=== PATIENT | male | born 1940 | race Caucasian/White ===

== ENCOUNTER 2016-10-03 16:39 | Emergency (ER) | payer MEDICARE, OTHER ==
[~2016-10-03 16:39] MED LIST: AMBIEN10 MG PO; ASPIRIN81 MG PO; CARDIZEM CD120 MG PO; CEFTIN500 MG PO; COLCRYS0.6 MG PO; CORDARONE200 MG PO; COREG 3.125M3.125 MG PO; DIGITEK125 MCG PO; DILTIAZEM 24HR360 MG PO; DOXEPIN HCL75 MG PO; FEOSOL325 MG PO; GLUCOPHAGE500 MG PO; GLUCOTROL XL10 MG PO; IPRATROPIUM0.2 MG/ML NEB; K-DUR20 MEQ PO; LACTINEX1 EACH PO; LANOXIN 0.120.125 MG PO; LASIX40 MG PO; LESCOL40 MG PO; LEVAQUIN750 MG PO; LEVEMIR FL100 UNIT/1 SC; LOPRESSOR25 MG PO; MUCINEX600 MG PO; PRAVACHOL40 MG PO; PREDNISONE 10MG10 MG PO; PRILOSEC20 MG PO; PRILOSEC40 MG PO; PROBENECID500 MG PO; PULMICORT0.5 MG/2 M NEB; SPIRIVA RESPIMAT4 G1 INH; SYNTHROID50 MCG PO; THEOPHYLLINE400 MG PO; TOUJEO SQ; VENTOLIN (2.5 MG/3 M INH; XOPENEX (00.63 MG/3 NEB; ZESTRIL10 MG PO; ZITHROMAX500 MG PO; ZYRTEC10 MG PO
[2016-10-03 17:26] LABS: BASOPHIL 0.2 % (0-2); EOSINOPHIL 0.3 % (0-7); HCT 36.7 % (42.0-52.0); HGB 11.1 g/dl (13.2-18.0); LYMPHOCYTE 13.7 % (15-48); MCH 24.8 pg (25.0-31.0); MCHC 30.2 g/dL (32.0-36.0); MCV 81.9 fL (78.0-100.0); MONOCYTE 4.4 % (0-12); MPV 8.9 fL (6.0-9.5); NEUTROPHIL 81.4 % (41-80); PLT 375 K/uL (150-400); RBC 4.48 M/uL (4.70-6.00); RDW 16.6 % (11.5-14.0); WBC 11.9 K/uL (4.0-10.5)
[2016-10-03 17:36] LABS: LACTIC ACID 2.3 mmol/L (0.5-2.2)
[2016-10-03 17:38] LABS: ALBUMIN 3.1 g/dL (3.4-4.8); BILIRUBIN - TOTAL 0.7 mg/dL (0.1-1.0); CREATININE 1.1 mg/dL (0.7-1.2); POTASSIUM 3.7 mmol/L (3.5-5.1); TOTAL PROTEIN 7.1 g/dL (6.4-8.3)
== END 2016-10-03 19:03 | disposition home or self-care (01) ==
LOC: FER 16:39
PROVIDERS: Internal Medicine
DX: J44.1 Chronic obstructive pulmonary disease with (acute) exacerbation (principal); I48.91 Unspecified atrial fibrillation; E10.9 Type 1 diabetes mellitus without complications; Z95.1 Presence of aortocoronary bypass graft
CPT/HCPCS: 36415; 71010; 80053; 83605; 85025; 87040; 93005; 94640

== ENCOUNTER 2016-10-07 03:00 | Emergency (ER) | payer MEDICARE, OTHER ==
[2016-10-07 03:46] LABS: BASOPHIL 0.1 % (0-2); EOSINOPHIL 0.1 % (0-7); HCT 38.6 % (42.0-52.0); HGB 11.7 g/dl (13.2-18.0); MCH 24.9 pg (25.0-31.0); MCHC 30.3 g/dL (32.0-36.0); MCV 82.1 fL (78.0-100.0); MONOCYTE 4.3 % (0-12); NEUTROPHIL 84.5 % (41-80); PLT 393 K/uL (150-400); RDW 16.8 % (11.5-14.0); WBC 15.1 K/uL (4.0-10.5)
[2016-10-07 03:55] LABS: INR 0.99 (0.9-1.2); PROTHROMBIN TIME 12.7 SECONDS (11.7-14.0); PTT 26.4 SECONDS (23.2-31.4)
[2016-10-07 04:04] LABS: CKMB 2.24 ng/mL (0.97-4.94)
[2016-10-07 04:05] LABS: ALBUMIN 3.2 g/dL (3.4-4.8); BILIRUBIN - TOTAL 0.6 mg/dL (0.1-1.0); CREATININE 1.1 mg/dL (0.7-1.2); POTASSIUM 4.1 mmol/L (3.5-5.1); TOTAL PROTEIN 7.2 g/dL (6.4-8.3)
[2016-10-07 04:07] LABS: TROPONIN T 0.102 ng/mL
== END 2016-10-07 06:02 | disposition other institution (70) ==
LOC: FER 03:00
PROVIDERS: Emergency Medicine
DX: I24.9 Acute ischemic heart disease, unspecified (principal); J44.9 Chronic obstructive pulmonary disease, unspecified; E11.9 Type 2 diabetes mellitus without complications; I48.91 Unspecified atrial fibrillation; I25.2 Old myocardial infarction; Z87.891 Personal history of nicotine dependence; Z79.51 Long term (current) use of inhaled steroids; Z79.84 Long term (current) use of oral hypoglycemic drugs; Z79.899 Other long term (current) drug therapy; Z95.0 Presence of cardiac pacemaker; W01.0XXA Fall on same level from slipping, tripping and stumbling without subsequent striking against object, initial encounter; Y92.091 Bathroom in other non-institutional residence as the place of occurrence of the external cause
CPT/HCPCS: 36415; 36600; 71010; 72100; 80053; 82550; 82553; 82803; 83880; 84484; 85025; 85610; 85730; 93005; 94640; 94760; 96372; J1160; J2270; J2405

== ENCOUNTER 2016-10-11 08:39 | Inpatient (IN) | payer MEDICARE, OTHER ==
[2016-10-11 09:16] LABS: BASOPHIL 0.1 % (0-2); EOSINOPHIL 0.1 % (0-7); HCT 35.5 % (42.0-52.0); HGB 11.1 g/dl (13.2-18.0); LYMPHOCYTE 6.1 % (15-48); MCH 24.8 pg (25.0-31.0); MCHC 31.3 g/dL (32.0-36.0); MCV 79.4 fL (78.0-100.0); MONOCYTE 5.8 % (0-12); MPV 8.9 fL (6.0-9.5); NEUTROPHIL 87.9 % (41-80); PLT 375 K/uL (150-400); RBC 4.47 M/uL (4.70-6.00); RDW 16.7 % (11.5-14.0)
[2016-10-11 09:17] LABS: WBC 20.9 K/uL (4.0-10.5)
[2016-10-11 09:29] LABS: CREATININE 1.4 mg/dL (0.7-1.2); POTASSIUM 4.1 mmol/L (3.5-5.1)
[2016-10-11 09:34] LABS: TROPONIN T 0.149 ng/mL
[2016-10-11 09:50] LABS: LACTIC ACID 2.2 mmol/L (0.5-2.2)
[2016-10-13 04:13] LABS: HCT 28.9 % (42.0-52.0); HGB 8.9 g/dl (13.2-18.0); MCH 24.5 pg (25.0-31.0); MCHC 30.8 g/dL (32.0-36.0); MCV 79.6 fL (78.0-100.0); MPV 8.6 fL (6.0-9.5); RBC 3.63 M/uL (4.70-6.00); RDW 16.3 % (11.5-14.0); WBC 9.1 K/uL (4.0-10.5)
[2016-10-13 04:34] LABS: CREATININE 1.6 mg/dL (0.7-1.2); POTASSIUM 3.7 mmol/L (3.5-5.1)
[2016-10-14 04:54] LABS: HCT 32.1 % (42.0-52.0); HGB 9.9 g/dl (13.2-18.0); MCH 24.3 pg (25.0-31.0); MCHC 30.8 g/dL (32.0-36.0); MCV 78.9 fL (78.0-100.0); MPV 8.7 fL (6.0-9.5); RBC 4.07 M/uL (4.70-6.00); RDW 16.3 % (11.5-14.0); WBC 9.2 K/uL (4.0-10.5)
[2016-10-14 05:05] LABS: CREATININE 1.5 mg/dL (0.7-1.2); POTASSIUM 3.1 mmol/L (3.5-5.1)
== END 2016-10-14 17:46 | DRG 871 ==
LOC: FER 08:39 → FTCU 11:33 → FMS 10-13 16:00
PROVIDERS: Internal Medicine; Internal Medicine Cardiovascular Disease; ADMIT Internal Medicine
DX: A41.9 Sepsis, unspecified organism (principal); I50.33 Acute on chronic diastolic (congestive) heart failure; J96.20 Acute and chronic respiratory failure, unspecified whether with hypoxia or hypercapnia; J44.0 Chronic obstructive pulmonary disease with (acute) lower respiratory infection; E11.9 Type 2 diabetes mellitus without complications; D64.9 Anemia, unspecified; J44.1 Chronic obstructive pulmonary disease with (acute) exacerbation; I48.2 Chronic atrial fibrillation; I10 Essential (primary) hypertension; E03.9 Hypothyroidism, unspecified; I25.10 Atherosclerotic heart disease of native coronary artery without angina pectoris; E78.5 Hyperlipidemia, unspecified; J20.9 Acute bronchitis, unspecified; Z86.14 Personal history of Methicillin resistant Staphylococcus aureus infection; Z95.1 Presence of aortocoronary bypass graft; Z95.0 Presence of cardiac pacemaker; Z79.82 Long term (current) use of aspirin; I25.2 Old myocardial infarction; Z86.711 Personal history of pulmonary embolism; Z72.0 Tobacco use
CPT/HCPCS: 36415; 36600; 71010; 71250; 80048; 82803; 82962; 83605; 83880; 84484; 85025; 87040; 87804; 87899; 93005; 94010; 94640; 94667; 94668; 97110; 97116; 97162; 97166; 97530; 97530-GP; 97535; J1170; J1940; J2405; J2543; J2930

== ENCOUNTER 2016-10-14 17:21 | Inpatient (IN) | payer MEDICARE, OTHER ==
[2016-10-18 12:00] LABS: HGB 9.9 g/dl (13.2-18.0); MCH 24.4 pg (25.0-31.0); MCHC 30.9 g/dL (32.0-36.0); MPV 8.5 fL (6.0-9.5); RBC 4.05 M/uL (4.70-6.00); RDW 16.3 % (11.5-14.0); RETICULOCYTE COUNT 2.3 % (1.0-2.0); WBC 16.6 K/uL (4.0-10.5)
[2016-10-18 12:14] LABS: CREATININE 1.2 mg/dL (0.7-1.2); POTASSIUM 4.3 mmol/L (3.5-5.1)
[2016-10-18 12:18] LABS: IRON 35 ug/dL (44-196); IRON % SATURATION 16 %SAT (20-50); TIBC (TOTAL IRON + UIBC) 218 U/L (228-428); UIBC 183 ug/dL (112-346)
[2016-10-18 12:40] LABS: FOLIC ACID (SERUM) 13.9 ng/mL (5.6-45.8)
--- NOTE | 2016-10-19 10:36 | NUR ---
PT NON COMPLIANT WITH FLUID RESTRICTION. FMAILY BROUGHT IN LARGE CUP OF COFFEE TIHS MORNING. HAD OT BRING HIM A CUP OF ICE AND THEN ASKED NURSING FOR ANOTHER CUP. STATED THAT OT DID NOT BRING HIM ANY ICE THEN STATED "I HAVE TO HAVE SOME ICE. IF I DONT I WILL FIND SOMETHING ELSE TO DRINK THEN"
[2016-10-20 05:50] LABS: ALBUMIN 2.8 g/dL (3.4-4.8); BILIRUBIN - TOTAL 0.8 mg/dL (0.1-1.0); CREATININE 1.1 mg/dL (0.7-1.2); GLOBULIN (CALCULATION) 3.5 g/dL (2.2-4.2); PHOSPHORUS 3.9 mg/dL (2.7-4.5); POTASSIUM 3.8 mmol/L (3.5-5.1); TOTAL PROTEIN 6.3 g/dL (6.4-8.3)
--- NOTE | 2016-10-20 14:20 | NUR ---
PT STATES "I NEED SOME ICE" INFORMED PATIENT AGAIN HE IS ON A FLUID RESTRICTION AND CLOSE TO MAX ALREADY. HE STATES "ILL JUST GET SOMEONE TO BRING ME SOME IN THEN. I NEED IT"
--- NOTE | 2016-10-21 09:14 | NUR ---
HR BT 100-120, TEMP 98.3 AXILLARY AT THIS TIME, RALES/RHONCHI NOTED WILL NOTIFY
--- NOTE | 2016-10-21 10:32 | NUR ---
PT STATES "I NEED SOME ICE AND IF I DONT GET IT IM GOING HOME" NON COMPLIANT. CALLS FAMILY TO BRING FLUIDS IN WELL
--- NOTE | 2016-10-21 15:07 | NUR ---
MET WITH PT. AND HIS SON. DISCUSSED HIS FLUID RESTRICTION. HE STATED THAT HE UNDERSTOOD, BUT WOULD LIKE ICE CHIPS INSTEAD OF OTHER FLUIDS. I ADVISED HIS NURSE, NORAH, AND SHE SAID HE WOULD NEED WATER TO TAKE HIS MEDS, BUT IF ONLY WANTED ICE CHIPS THEN THAT WOULD STILL COUNT HIS TOTAL FLUID INTAKE. ADVISED PT AND SON OF THE ABOVE INFORMATION AND THEY WERE BOTH IN AGREEMENT.
--- NOTE | 2016-10-21 15:09 | NUR ---
TC TO PT. EXPLAINED THAT FAMILY NEEDED TO BE ADVISED NOT TO BRING PT. FLUID FROM OUTSIDE IT WAS GOING OVER HIS DAILY INTAKE. HIS STATED THAT SHE UNDERSTOOD AND WOULD TELL THE CHILDREN. HIS ADVSIED THAT PT. DOES NOT WANT TO D/C TO ANOTHER FACILITY, BUT WANTS TO COME HOME. SHE STATED THAT SHE WOULD TRY TO CARE FOR HIM AT HOME. AT THIS TIME, SHE IS INTERESTED IN TALKING WITH HOSPICE ABOUT THEIR PROGRAM. PT. AND CHILDREN WILL BE SPEAKING WITH HOSPICE ON 10/24/16 AT 10:00 A.M.
--- NOTE | 2016-10-21 16:03 | NUR ---
DISCUSSED CODE STATUS AND HOSPICE RESOURCE FOR PT AND DISCHARGE AND PT DECLINED HOSPICE AND STATES "I DONT WANT THAT SHIT. THAT MEANS YOU ARE ON YOUR BED" WANTS TO KEEP FULL CODE STATUS. CALLED DR JACOBO ABOUT COUGH. ROBITUSSIN ORDERED WELL SPUTUM CULTURE. NEW DRESSING APPLIED TO LEFT HAND. NO NEW BLEEDING NOTED
--- NOTE | 2016-10-22 10:22 | NUR ---
DURING ASSESSMENT THIS AM THIS RN SPOKE TO PATIENT ABOUT CODE STATUS, PT STATES "YOU ALL ARE GETTING ON MY NERVES BUT I DON'T WANT TO BE ON A RESPIRATOR" WILL CALL MD TO GET ORDER FOR DNI.
--- NOTE | 2016-10-24 10:33 | NUR ---
Pt. and daughter met with Judith, with Hospice. They have decided to go home at this time and continue with [facility]. Pt. and family have requested that pt. d/c home this date. Notifed Blanche with [facility] and Joana at [facility] for hospital bed and 3 in .
--- NOTE | 2016-10-24 15:47 | NUR ---
PT. REQUESTED TO D/C HOME WITH SPOUSE THIS DATE. PT. HAS A ROLLING WALKER, TRIOLOGY, NEUBLIZER, HOME O2, ELECTRIC WHEELCHAIR BEING DELIVERED BY [facility]. [facility] IS TO ALSO DELIVER A HOSPITAL BED WITH [facility] AND A 09/21. PT. REQUESTED [facility] FOR PT/OT AND NURSING ASSESSMENT, HEART/LUNG CHECK PROGRAM. D/C NOTICE AND QUESTIONNAIRE GIVEN.
== END 2016-10-24 14:14 | disposition home health service (06) | DRG 947 ==
LOC: FSNU 17:21
PROVIDERS: ADMIT Internal Medicine
DX: R53.81 Other malaise (principal); I50.33 Acute on chronic diastolic (congestive) heart failure; J69.0 Pneumonitis due to inhalation of food and vomit; J96.10 Chronic respiratory failure, unspecified whether with hypoxia or hypercapnia; J44.9 Chronic obstructive pulmonary disease, unspecified; E11.9 Type 2 diabetes mellitus without complications; I25.10 Atherosclerotic heart disease of native coronary artery without angina pectoris; R00.0 Tachycardia, unspecified; Z99.81 Dependence on supplemental oxygen; Z86.711 Personal history of pulmonary embolism
CPT/HCPCS: 36415; 36600; 71010; 80048; 80053; 82607; 82746; 82803; 82962; 83540; 83550; 84078; 84100; 85044; 87070; 87077; 87186; 87205; 92526; 97110; 97116; 97161; 97166; 97530; 97530-GP; 97535

== ENCOUNTER 2016-10-25 02:24 | Day surgery (SDCO) | payer MEDICARE, OTHER ==
[2016-10-25 04:50] LABS: HCT 29.4 % (42.0-52.0); HGB 9.2 g/dl (13.2-18.0); RBC 3.72 M/uL (4.70-6.00); WBC 17.3 K/uL (4.0-10.5)
[2016-10-25 04:51] LABS: MCH 24.7 pg (25.0-31.0); MCHC 31.3 g/dL (32.0-36.0); PLT 299 K/uL (150-400)
[2016-10-25 05:06] LABS: ALBUMIN 2.3 g/dL (3.4-4.8); BILIRUBIN - TOTAL 1.2 mg/dL (0.1-1.0); CREATININE 1.5 mg/dL (0.7-1.2); GLOBULIN (CALCULATION) 4.3 g/dL (2.2-4.2); POTASSIUM 3.9 mmol/L (3.5-5.1); TOTAL PROTEIN 6.6 g/dL (6.4-8.3)
[2016-10-25 08:13] LABS: CKMB 1.71 ng/mL (0.97-4.94); TROPONIN T 0.093 ng/mL
[2016-10-25 09:05] LABS: BILIRUBIN NEGATIVE (NEGATIVE); BLOOD NEGATIVE Ery/uL (NEGATIVE); CLARITY CLEAR (CLEAR); COLOR YELLOW (YELLOW); GLUCOSE (U) NORMAL (NORMAL); KETONE (U) NEGATIVE (NEGATIVE); LEUKOCYTES TRACE Leu/uL (NEGATIVE); NITRITE NEGATIVE (NEGATIVE); PROTEIN TRACE (LOW) mg/dL (NEGATIVE)
[2016-10-25 09:18] LABS: BACTERIA TRACE
== END 2016-10-25 12:54 ==
LOC: FER 02:24 → FMS 05:51
PROVIDERS: Emergency Medicine; ADMIT Internal Medicine
DX: R53.1 Weakness (principal); J44.9 Chronic obstructive pulmonary disease, unspecified; I25.10 Atherosclerotic heart disease of native coronary artery without angina pectoris; I50.32 Chronic diastolic (congestive) heart failure; E11.9 Type 2 diabetes mellitus without complications; Z95.1 Presence of aortocoronary bypass graft; Z86.14 Personal history of Methicillin resistant Staphylococcus aureus infection; Z79.82 Long term (current) use of aspirin; Z79.52 Long term (current) use of systemic steroids; Z79.899 Other long term (current) drug therapy
CPT/HCPCS: 36415; 36600; 71010; 72100; 80053; 81001; 82550; 82553; 82803; 83605; 83874; 83880; 84484; 87040; 87088; 93005; 94010; 94640; 94760; 97163; 97530-GP; G0378; J2060; J2930